=== PATIENT | female | born 1990 | race Caucasian/White ===

== ENCOUNTER → 2023-06-24 10:00 | Outpatient (REF) | payer OTHER, SELFPAY | LOC: CLAB 10:00 | PROVIDERS: ATTENDING PHYSICIAN Nurse Practitioner Family | DX: E03.9 Hypothyroidism, unspecified (principal) | CPT/HCPCS: 36415; 84443 ==

== ENCOUNTER 2023-07-21 16:02 | Outpatient (RCR) | payer OTHER, SELFPAY | END 2023-07-21 23:59 | disposition home or self-care (01) | LOC: RPT 16:02 | PROVIDERS: ATTENDING PHYSICIAN Nurse Practitioner Family | DX: N39.3 Stress incontinence (female) (male) (principal); N39.41 Urge incontinence; N94.11 Superficial (introital) dyspareunia; Z73.6 Limitation of activities due to disability | CPT/HCPCS: 97112; 97161 ==

== ENCOUNTER 2023-08-25 19:02 | Outpatient (RCR) | payer OTHER, SELFPAY | END 2023-08-25 23:59 | disposition home or self-care (01) | LOC: RPT 19:02 | PROVIDERS: ATTENDING PHYSICIAN Nurse Practitioner Family | DX: N39.46 Mixed incontinence (principal); N94.11 Superficial (introital) dyspareunia; Z73.6 Limitation of activities due to disability | CPT/HCPCS: 97014; 97110; 97112; 97140; 97530 ==

== ENCOUNTER 2023-09-22 18:03 | Outpatient (RCR) | payer OTHER, SELFPAY | END 2023-09-22 23:59 | disposition home or self-care (01) | LOC: RPT 18:03 | PROVIDERS: ATTENDING PHYSICIAN Nurse Practitioner Family | DX: N39.3 Stress incontinence (female) (male) (principal); N39.41 Urge incontinence; N94.11 Superficial (introital) dyspareunia; Z73.6 Limitation of activities due to disability | CPT/HCPCS: 97014; 97110; 97112; 97140; 97530 ==

== ENCOUNTER 2023-10-20 15:02 | Outpatient (RCR) | payer OTHER, SELFPAY | END 2023-10-20 23:59 | disposition home or self-care (01) | LOC: RPT 15:02 | PROVIDERS: ATTENDING PHYSICIAN Nurse Practitioner Family | DX: N39.3 Stress incontinence (female) (male) (principal); N39.41 Urge incontinence; N94.11 Superficial (introital) dyspareunia; Z73.6 Limitation of activities due to disability | CPT/HCPCS: 97014; 97112; 97140; 97530 ==

== ENCOUNTER 2023-11-17 19:01 | Outpatient (RCR) | payer OTHER, SELFPAY | END 2023-11-17 23:59 | disposition home or self-care (01) | LOC: RPT 19:01 | PROVIDERS: ATTENDING PHYSICIAN Nurse Practitioner Family | DX: N39.3 Stress incontinence (female) (male) (principal); N39.41 Urge incontinence; N94.11 Superficial (introital) dyspareunia; Z73.6 Limitation of activities due to disability | CPT/HCPCS: 97014; 97112; 97140; 97530 ==

== ENCOUNTER → 2023-12-10 06:44 | Outpatient (REF) | payer OTHER, SELFPAY ==
[2023-12-10 07:29] LABS: % Basophils 1.1 % (0-2); % Eosinophils 5.3 % (0-6); % Immature Granulocytes 0.2 % (0-0.5); % Lymphocytes 36.5 % (20.5-51.1); % Monocytes 8.8 % (1.7-9.3); % Neutrophils 48.1 % (42.2-75.2); Absolute Basophils 0.1 10^3/uL (0-0.2); Absolute Eosinophils 0.3 10^3/uL (0-0.7); Absolute Lymphocytes 2.3 10^3/uL (1.2-3.4); Absolute Monocytes 0.6 10^3/uL (0.1-0.6); Absolute Neutrophils 3.1 10^3/uL (1.4-6.5); Hematocrit 38.5 % (37.0-47.0); Hemoglobin 13.1 g/dL (12.0-16.0); Mean Corpuscular Hgb 29.8 pg (27.0-31.0); Mean Corpuscular Volume 87.7 fL (81.0-99.0); Mean Platelet Volume 9.1 fL (7.4-10.4); Nucleated Red Blood Cells % 0 %; Platelet Count 284 10^3/uL (130-400); Red Blood Cell Count 4.39 10^6/uL (4.20-5.40); Red Cell Dist. Width 12.6 % (11.5-14.5); White Blood Cell Count 6.4 10^3/uL (4.8-10.8)
[2023-12-10 08:05] LABS: ALT (SGPT) 16 U/L (0-35); AST (SGOT) 23 U/L (14-36); Albumin 4.6 g/dl (3.5-5.0); Alkaline Phosphatase 70 U/L (38-126); Blood Urea Nitrogen 20 mg/dl (7-17); Calcium 9.9 mg/dl (8.4-10.2); Carbon Dioxide 25 mmol/L (22-30); Chloride 102 mmol/L (98-107); Glucose 95 mg/dl (70-99); HDL Cholesterol 70 mg/dl; LDL Cholesterol, Calculated 118 mg/dl; Potassium 4.6 mmol/L (3.5-5.1); Sodium 141 mmol/L (135-145); Total Bilirubin 0.4 mg/dl (0.2-1.3); Total Cholesterol 201 mg/dl (50-199); Total Protein 6.9 g/dl (6.3-8.2); Triglyceride 66 mg/dl (10-149); Very Low Density Lipoprotein 13 mg/dl (0-30); eGFR > 60.00
== END ==
LOC: REG 06:44
PROVIDERS: ATTENDING PHYSICIAN Nurse Practitioner Family
DX: Z13.1 Encounter for screening for diabetes mellitus (principal); Z13.0 Encounter for screening for diseases of the blood and blood-forming organs and certain disorders involving the immune mechanism
CPT/HCPCS: 36415; 80053; 80061; 85025

== ENCOUNTER 2023-12-22 19:03 | Outpatient (RCR) | payer OTHER, SELFPAY | END 2023-12-22 23:59 | disposition home or self-care (01) | LOC: RPT 19:03 | PROVIDERS: ATTENDING PHYSICIAN Nurse Practitioner Family | DX: N39.3 Stress incontinence (female) (male) (principal); N39.41 Urge incontinence; N94.11 Superficial (introital) dyspareunia; Z73.6 Limitation of activities due to disability | CPT/HCPCS: 97110; 97112; 97140; 97530 ==

== ENCOUNTER 2024-01-19 18:58 | Outpatient (RCR) | payer OTHER, SELFPAY | END 2024-01-20 08:14 | disposition home or self-care (01) | LOC: RPT 18:58 | PROVIDERS: ATTENDING PHYSICIAN Nurse Practitioner Family | DX: N39.3 Stress incontinence (female) (male) (principal); N39.41 Urge incontinence; N94.11 Superficial (introital) dyspareunia; Z73.6 Limitation of activities due to disability | CPT/HCPCS: 97530 ==

== ENCOUNTER 2024-03-17 21:34 | Emergency (ER) | payer OTHER, SELFPAY ==
[2024-03-17 21:43] VITALS: BP 130/87
[2024-03-17 23:05] VITALS: BMI 34.0
[2024-03-17 23:18] VITALS: BP 112/82
--- NOTE | 2024-03-17 23:35 | ED.GENMED ---
History of Present Illness
General
Chief Complaint: Skin Problem
Source: patient
Exam Limitations: none
Time Seen by Provider: 03/17/24 22:37
Nursing documentation reviewed up to this point in time: agreed with
History of Present Illness
History of Present Illness:
pt is a 33 y/o F
1 year old
here with swelling and pain in L armpit x 3 days
no fever, chills, drainage
has had known cyst there that she had mammogram/US for that showed no concerns
hasn't been painful until now
took motrin last at 4 pm
Past History
Past History
ED Past Medical History: None
ED Past Surgical History: Tonsilectomy
Social History
Tobacco: Non-smoker
Alcohol: None
Personal: Single
Living: with family
Employment: Employed (RN part-time at )
Family History
Family History: Other (Nonsignificant)
Review of Systems
Review of Systems
Allergies reviewed?: Yes
All Other Systems: Not applicable
Phy Exam
Physical Exam
Physical Exam:
GENERAL: Alert , in no apparent distress, comfortable at rest
HEAD: NCAT
NEUROLOGICAL: Alert and oriented, no focal neuro deficits, , 5/5 strength, sensation intact, ambulation slight limp right leg
SKIN: Warm and dry, round tender fluctuanct mass L axilla approx 3 x 2 cm
no surrounding erythema but mild surrounding inflammation
MUSCULOSKELETAL: L axillary abscess/sebaceous cyst
no cellulitis
PSYCH: Normal and appropriate interaction.
Course
Orders/Labs/Results
Orders:
Orders
03/17/24 23:39
Cephalexin Monohydrate [Keflex] 500 mg PO NOW STA
Ibuprofen [Motrin] 600 mg PO NOW STA
Vital Signs
Initial and Last Documented VS:
Initial Vital Signs
Temp Pulse Resp BP Pulse Ox
36.6 C 100 18 130/87 100
03/17/24 21:43 03/17/24 21:43 03/17/24 21:43 03/17/24 21:43 03/17/24 21:43
Last Documented Vital Signs
Temp Pulse Resp BP Pulse Ox
36.6 C 80 13 113/88 99
03/17/24 21:43 03/18/24 00:05 03/18/24 00:05 03/18/24 00:05 03/17/24 23:18
Procedures
Incision/Drainage/Joint Aspiration
Left Arm:
Anethesia: 1% Lidocaine with Epi
Preparation: cleaned with Betadine
Type of procedure: incise
Nature of site: cyst
Description of abscess: less than 3cm
Loculations broken up: Yes
How much fluid was obtained?: large amount
Fluid description: purulent
Treatment: left open for drainage
MDM/Problems Addressed
Differential Diagnosis Includes:
infected sebaceous cyst, abscess
MDM/Problems Addressed:
33 y/o F
h/o known cyst in L axilla for a year
here with pain/swellin recently this week
no fever
no drainage
well apearing, pain with arm movement
localized fluctuant 2x 3 cm round tender mass L axilla, mild overlying erythema
I&D successful; large amound of purulentcystic fluid
left open for warm compresses
abx.
*Critical Care Note
Total Time (30-74mins, 75-104mins- exclusive of procedures): Not Applicable
ED Attending Note
-
Portions of this chart may have been created with voice recognition software.� Occasional wrong word or��sound alike� substitutions may have occurred due to the inherent limitations of voice recognition software.
Discharge Plan
Departure
Patient Disposition: Home (Routine Discharge)
Date of Disposition: 03/18/24
Time of Disposition: 00:14
Patient with high blood pressure during this ER visit?: No
Condition: Fair
Discharge Problem:
Infected sebaceous cyst
Instructions: Skin Abscess
Prescriptions:
New
cephalexin 500 mg capsule
500 mg PO Q8H Qty: 21 0RF
No Action
thyroid (pork) [[place] Thyroid] 30 mg Tablet
30 mg PO MOWEFR
Patient Comments:
Takes Wednesday, Wednesday, Wednesday
multivitamin Tablet
1 tab PO DAILY
Referrals:
Kary Amador CRNP [Family Provider] -
Activity Restrictions/Additional Instructions:
APPLY WARM COMPRESSES OFF AND ON TO YOUR ARM SEVERAL TIMES A DAY UNTIL HEALED
TAKE MOTRIN 3 TIMES A DAY FOR PAIN NEEDED
KEFLEX 3 TIMES A DAY FOR 7 DAYS
RETURN FOR ANY CONCERNS
Interventions
Interventions:
*Risk Screen - Suicide Last Done: 03/17/24 21:43
*General Assessment Last Done: 03/17/24 21:43
*Neglect/Abuse Screening Last Done: 03/17/24 21:43
ED- Fall Risk Assessment Last Done: 03/17/24 23:05
*ED COVID-19 Vaccine History Last Done: 03/17/24 23:05
*Nursing Disposition Last Done: 03/18/24 00:15
ED-Skin Assessment Last Done: 03/17/24 23:05
Discharge Date and Time
Discharge Date/Time: 03/18/24 00:15
Print Language: MOLDOVAN
[2024-03-18 00:05] VITALS: BP 113/88
[2024-03-18] MEDS: KEFLEX 500 MG PO (00:14)
[2024-03-18] MEDS: MOTRIN 600 MG PO (00:14)
== END 2024-03-18 00:15 | disposition home or self-care (01) ==
LOC: EMR 21:34
PROVIDERS: EMERGENCY PHYSICIAN Emergency Medicine; FAMILY PHYSICIAN Nurse Practitioner Family
DX: L08.9 Local infection of the skin and subcutaneous tissue, unspecified (principal); L72.3 Sebaceous cyst
CPT/HCPCS: 99282; 10060

== ENCOUNTER → 2024-03-31 16:12 | Outpatient (REF) | payer OTHER, SELFPAY ==
[2024-03-31 17:31] LABS: % Eosinophils 1.6 % (0-6); % Immature Granulocytes 0.4 % (0-0.5); % Monocytes 7.1 % (1.7-9.3); % Neutrophils 51.9 % (42.2-75.2); Absolute Basophils 0.1 10^3/uL (0-0.2); Absolute Eosinophils 0.1 10^3/uL (0-0.7); Absolute Lymphocytes 1.9 10^3/uL (1.2-3.4); Absolute Monocytes 0.4 10^3/uL (0.1-0.6); Absolute Neutrophils 2.6 10^3/uL (1.4-6.5); Hematocrit 39.9 % (37.0-47.0); Mean Corp Hgb Conc. 32.6 g/dL (33.0-37.0); Mean Corpuscular Hgb 29.1 pg (27.0-31.0); Mean Corpuscular Volume 89.5 fL (81.0-99.0); Mean Platelet Volume 9.4 fL (7.4-10.4); Nucleated Red Blood Cells % 0 %; Platelet Count 307 10^3/uL (130-400); Red Blood Cell Count 4.46 10^6/uL (4.20-5.40); Red Cell Dist. Width 12.2 % (11.5-14.5); White Blood Cell Count 5.1 10^3/uL (4.8-10.8)
[2024-04-02 18:00] LABS: ANA, IgG Reflex to HEp-2 Detected (None Detected)
== END ==
LOC: CLAB 16:12
PROVIDERS: ATTENDING PHYSICIAN Family Medicine
DX: L02.91 Cutaneous abscess, unspecified (principal); L65.9 Nonscarring hair loss, unspecified; F90.0 Attention-deficit hyperactivity disorder, predominantly inattentive type
CPT/HCPCS: 36415; 84443; 85025; 86038

== ENCOUNTER → 2024-06-27 09:10 | Outpatient (REF) | payer OTHER, SELFPAY ==
[2024-06-27 16:36] LABS: % Basophils 0.6 % (0-2); % Eosinophils 1.9 % (0-6); % Immature Granulocytes 0.2 % (0-0.5); % Lymphocytes 35.6 % (20.5-51.1); % Monocytes 6.3 % (1.7-9.3); % Neutrophils 55.4 % (42.2-75.2); Absolute Eosinophils 0.1 10^3/uL (0-0.7); Absolute Lymphocytes 1.9 10^3/uL (1.2-3.4); Absolute Monocytes 0.3 10^3/uL (0.1-0.6); Absolute Neutrophils 2.9 10^3/uL (1.4-6.5); Hematocrit 41.1 % (37.0-47.0); Hemoglobin 13.3 g/dL (12.0-16.0); Mean Corp Hgb Conc. 32.4 g/dL (33.0-37.0); Mean Corpuscular Hgb 29.4 pg (27.0-31.0); Mean Corpuscular Volume 90.9 fL (81.0-99.0); Mean Platelet Volume 9.6 fL (7.4-10.4); Nucleated Red Blood Cells % 0 %; Platelet Count 274 10^3/uL (130-400); Red Blood Cell Count 4.52 10^6/uL (4.20-5.40); Red Cell Dist. Width 12.9 % (11.5-14.5); White Blood Cell Count 5.2 10^3/uL (4.8-10.8)
[2024-06-27 16:42] LABS: ALT (SGPT) 17 U/L (0-35); AST (SGOT) 22 U/L (14-36); Albumin 4.8 g/dl (3.5-5.0); Alkaline Phosphatase 56 U/L (38-126); Blood Urea Nitrogen 14 mg/dl (7-17); Calcium 9.3 mg/dl (8.4-10.2); Carbon Dioxide 25 mmol/L (22-30); Chloride 106 mmol/L (98-107); Glucose 98 mg/dl (70-99); HDL Cholesterol 58 mg/dl; LDL Cholesterol, Calculated 106 mg/dl; Potassium 4.3 mmol/L (3.5-5.1); Sodium 140 mmol/L (135-145); Total Bilirubin 0.6 mg/dl (0.2-1.3); Total Cholesterol 175 mg/dl (50-199); Triglyceride 56 mg/dl (10-149); Very Low Density Lipoprotein 11 mg/dl (0-30); eGFR > 60.00
[2024-06-27 16:45] LABS: Urine Albumin Negative (Neg - Trace); Urine Bilirubin Negative (Negative); Urine Character Clear (Clear); Urine Color Yellow; Urine Glucose Negative (Negative); Urine Ketone Negative (Negative); Urine Leukocyte Negative (Negative); Urine Nitrite Negative (Negative); Urine Occult Blood 4+ (Negative); Urine Specific Gravity 1.005 (<1.030); Urine Urobilinogen Negative (Neg - 1+)
[2024-06-27 17:05] LABS: TSH 2.57 uIU/ml (0.47-4.68)
[2024-06-27 17:06] LABS: Urine Bacteria Moderate (Negative); Urine Squamous Cell >30 /LPF (Few); Urine White Cell 0-2 /HPF (0-5)
== END ==
LOC: CLAB 09:10
PROVIDERS: ATTENDING PHYSICIAN Nurse Practitioner Family
DX: Z13.89 Encounter for screening for other disorder (principal); Z13.0 Encounter for screening for diseases of the blood and blood-forming organs and certain disorders involving the immune mechanism; Z13.1 Encounter for screening for diabetes mellitus; Z13.220 Encounter for screening for lipoid disorders; E03.9 Hypothyroidism, unspecified
CPT/HCPCS: 36415; 80053; 80061; 81003; 81015; 84443; 85025